=== PATIENT | male | born 1975 | race Caucasian/White ===

== ENCOUNTER 2018-01-10 18:23 | Emergency (ER) | payer BC, OTHER ==
[~2018-01-10] VITALS: Ht 185.4 cm; Wt 79.5 kg
[2018-01-10 18:24] VITALS: BP 121/69
[2018-01-10] MEDS ORDERED: TAMS-11 PO (18:57)
[2018-01-10] MEDS ORDERED: OXYcodone/APAP 5/325MG TABLET PO ONE (19:00)
[2018-01-10] MEDS ORDERED: OXYcodone/APAP 5/325MG TABLET ONE (19:01)
[2018-01-10] MEDS ORDERED: CEFAZOLIN 1,000 MG IM SCH (20:00)
[2018-01-10] MEDS ORDERED: DIPH,PERTUSS(ACELL),TET VAC/PF 0.5 ML IM-VACC ONE ×2 (20:00→20:13)
[2018-01-10] MEDS ORDERED: CEFAZOLIN 1,000 MG ONE (20:12)
[2018-01-10] MEDS ORDERED: LIDOCAINE-MPF 2% ,5ML ONE (20:12)
[2018-01-10] MEDS ORDERED: LIDOCAINE 1%, 10ML INFIL ONE (20:30)
== END 2018-01-10 21:28 | disposition home or self-care (01) ==
LOC: ED 21:20
DX: S91.012A Laceration without foreign body, left ankle, initial encounter (principal); W12.XXXA Fall on and from scaffolding, initial encounter; Y93.39 Activity, other involving climbing, rappelling and jumping off; Y92.488 Other paved roadways as the place of occurrence of the external cause; Y99.8 Other external cause status
CPT/HCPCS: 29515; 73610; 90715; 96372; 99284; J0690

== ENCOUNTER 2019-03-05 09:09 | Emergency (ER) | payer BC ==
[~2019-03-05] VITALS: Ht 185.4 cm; Wt 82.0 kg
[~2019-03-05 09:09] MED LIST: TAMS-11 PO
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
[2019-03-05] MEDS ORDERED: OXYcodone/APAP 5/325MG TABLET ONE (09:59)
[2019-03-05] MEDS ORDERED: L.E.T SOLUTION TP ONE ×2 (10:00)
[2019-03-05] MEDS ORDERED: DIPH,PERTUSS(ACELL),TET VAC/PF 0.5 ML IM-VACC ONE (10:00)
[2019-03-05] MEDS ORDERED: OXYcodone/APAP 5/325MG TABLET PO ONE (10:00)
--- NOTE | 2019-03-05 10:09 | NUR ---
MEDICATED PER EMAR (LET) ATIENT REFUSED PERCOCET & WITH FURTHER REVIEW HAD TDAP UPDATED LAST YEAR-SO TDAP BOOSTER DEFERRED IMAGING RESULTS REVIEWED-TO CLEANSE WOUND-POTENTIALLY SUTURE THEN DISPO
--- NOTE | 2019-03-05 10:34 | NUR ---
Ear laceration irrigated- approx 4cm lac to [place] into the Tragus
[2019-03-05] MEDS ORDERED: LIDOCAINE 1%, 10ML INFIL ONE (11:00)
[2019-03-05] MEDS ORDERED: LIDOCAINE-MPF 1%, 5ML ONE (11:07)
--- NOTE | 2019-03-05 11:22 | NUR ---
PROVIDER AT BEDSIDE SUTURING-UTILIZER WEB DEVELOPMENT DIRECTOR PROVIDED LIDOCAINE
[2019-03-05] MEDS ORDERED: NEOSPORIN OINT. PKT 1 PACKET ONE (11:32)
[2019-03-05 11:55] VITALS: BP 129/77
== END 2019-03-05 11:57 | disposition home or self-care (01) ==
LOC: ED 10:29
DX: S01.311A Laceration without foreign body of right ear, initial encounter (principal); S20.212A Contusion of left front wall of thorax, initial encounter; Y04.8XXA Assault by other bodily force, initial encounter; Y93.89 Activity, other specified; Y92.89 Other specified places as the place of occurrence of the external cause; Y99.8 Other external cause status
CPT/HCPCS: 12011; 71101; 99283; J3490